=== PATIENT | female | born 1935 | race Caucasian/White ===

== ENCOUNTER 2017-09-06 08:00 | Outpatient (CLI) | payer MEDICARE, OTHER | END 2017-09-06 08:01 | disposition home or self-care (01) | LOC: SCSMAMMO 08:00 | PROVIDERS: ATTEND Family Medicine | DX: Z12.31 Encounter for screening mammogram for malignant neoplasm of breast (principal) | CPT/HCPCS: 77063 ==

== ENCOUNTER 2019-01-02 13:20 | Observation (INO) | payer MEDICARE, OTHER ==
[2019-01-02] MEDS ORDERED: Ondansetron PF 4 MG/2 ML Vial ONE (13:55)
[2019-01-02 14:00] LABS: #Basophils 0.1 thou/uL (0.0-0.2); #Eosinphils 0.1 thou/uL (0.0-0.7); #Lymphocytes 1.2 thou/uL (1.20-3.40); #Monocytes 0.6 thou/uL (0.11-0.59); #Neutrophils 3.6 thou/uL (1.40-6.50); %Basophils 1.4 % (0.0-1.0); %Eosinophils 2.6 % (0.0-10.0); %Lymphocytes 21.6 % (21.0-51.0); %Monocytes 11.3 % (0.0-10.0); %Neutrophils 63.2 % (42.0-75.0); Mean Corpuscular HGB CONC 32.5 g/dL (32.0-36.0); Mean Corpuscular Hemoglobin 29.5 pg (27.0-31.0); Mean Corpuscular Volume 90.8 fL (78.0-98.0); Mean Platelet Volume 7.6 fL (7.4-10.4); Platelet Count 352 thou/uL (130-400); RBC Distribution Width 11.9 % (11.5-14.5); Red Blood Cell (RBC) Count 4.39 mill/uL (4.20-5.40); White Blood Cell (WBC) Count 5.7 thou/uL (4.8-10.8)
[2019-01-02 14:23] LABS: ALT (SGPT) 11 U/L (8-55); AST (SGOT) 17 U/L (5-34); Albumin 3.7 g/dL (3.4-4.8); Alkaline Phosphatase 65 U/L (40-150); Anion Gap 10 mmol/L (10-20); BUN (Urea Nitrogen) 20 mg/dL (9.8-20.1); Bilirubin, Total 0.7 mg/dL (0.2-1.2); Calc. Creatinine Clearance 0 mL/min (70-130); Calcium 9.6 mg/dL (7.8-10.44); Carbon Dioxide 26 mmol/L (23-31); Chloride 99 mmol/L (98-107); Estimated GFR-MDRD 45; Globulin 3.1 g/dL (2.4-3.5); Glucose 95 mg/dL (83-110); Lipase 12 U/L (8-78); Potassium 4.3 mmol/L (3.5-5.1); Protein, Total 6.8 g/dL (6.0-8.3); Sodium 131 mmol/L (136-145)
[2019-01-02 15:06] LABS: Bilirubin Negative (Negative); Blood, Urine Negative (Negative); Clarity CLEAR (Clear); Glucose, Urine (Dipstick) Negative (Negative); Leukocyte Negative (Negative); Nitrite Negative (Negative); Protein, Urine (Dipstick) Negative (Neg-Trace); Specific Gravity, Urine 1.004 (1.002-1.036); Urobilinogen 0.2 mg/dL (0.2-1.0); pH, Urine 7.5 (5.0-9.0)
[2019-01-02] MEDS ORDERED: Aspirin Chewable 81 MG TAB ONE (17:40)
[2019-01-02] MEDS ORDERED: Mag-Al 1200 mg/1200 mg/30 ML UDCUP ONE (17:53)
[2019-01-02] MEDS ORDERED: Lidocaine Viscous Sol 2% 15 ml UD Cup ONE (17:53)
--- NOTE | 2019-01-02 18:38 | RAD ---
FEXAM: Portable chest PROVIDED CLINICAL HISTORY: Epigastric pain COMPARISON: 09/23/2018 FINDINGS: Cardiac and mediastinal silhouette is within normal limits. No focal consolidation, pleural fluid or pneumothorax evident. Vascular calcification involves the aortic arch. 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 IMPRESSION: No evidence for an acute cardiopulmonary process.
[2019-01-02 20:59] LABS: Troponin I 0.021 ng/mL (< 0.028)
[2019-01-02] MEDS ORDERED: Acetaminophen 325 MG TAB PO PRN (21:13)
[2019-01-02] MEDS ORDERED: Ondansetron ODT 4 MG TAB SL PRN (21:13)
[2019-01-02] MEDS ORDERED: Ondansetron PF 4 MG/2 ML Vial IVP PRN ×2 (21:13→22:21)
[2019-01-02] MEDS ORDERED: Ondansetron ODT 4 MG TAB PO PRN (22:21)
[2019-01-02] MEDS ORDERED: Acetaminophen 650 MG Suppository PR PRN (22:21)
[2019-01-02] MEDS ORDERED: Senokot S 8.6-50 MG TAB PO PRN (22:21)
--- NOTE | 2019-01-02 22:36 | RAD ---
FEXAM: KUB PROVIDED CLINICAL HISTORY: Abdominal pain COMPARISON: None FINDINGS: Visualized lung bases appear clear. Bowel gas pattern is nonspecific. No radiographically apparent ur inary tract calculi. IMPRESSION: Nonspecific bowel gas pattern.
[2019-01-02] MEDS ORDERED: PROVENTIL INHALER 6.7 G (200 INHALATIONS) INH PRN (23:22)
[2019-01-02] MEDS ORDERED: clonazePAM 0.5 MG TAB PO SCH (23:30)
[2019-01-02] MEDS ORDERED: traZODone HCl 50 MG TAB PO SCH (23:30)
[2019-01-02] MEDS: Polyethylene Glycol 3350 17 GM Packet PO SCH ×2 (23:36→23:59)
--- NOTE | 2019-01-03 01:37 | HP ---
CHIEF COMPLAINT: Epigastric pain. HISTORY OF PRESENT ILLNESS: Ms. Liu is an 83-year-old woman, who presents today complaining of epigastric pain and feeling generally unwell. She states she has history of celiac sprue disease as well as GERD and gastritis for which she follows with Dr. Jay, her GI specialist. She had an appointment today and was unable to make it due to issues with transportation. The patient accidentally presented to her appointment yesterday and was not seen; therefore, missed the appointment today, as she was unable to secure another ride. She currently lives in an independent living. The patient states her pain is chronic, but reports having increased abdominal bloating. She has been having issues with constipation that has been worse recently. She had a small hard bowel movement yesterday and did not note any bright red blood in her stools or melena. She states she passed a very small amount. Denies having any associated vomiting. Has been passing flatus. Denies any hematemesis. Overall, the patient states she feels generally unwell, complains of chronic chest tightness that is usually brought on with exertion. She is currently unhappy with her living situation and is very much seeking to be placed in assisted living. She is also concerned about her ability to mobilize as she did previously. In recent weeks, she has been more sedentary and only able to walk short distances with her walker. REVIEW OF SYSTEMS: The patient denies having any fevers, chills, or sweats. Denies having any chest pain or palpitations. She reports shortness of breath at baseline that has not changed. She does report occasional tightness in her chest with exertion and again, this is unchanged from baseline. Denies having any vomiting, but has been experiencing nausea. Reports abdominal discomfort primarily in the epigastric and right upper quadrant region. Feels her abdomen is more bloated as well. She does not report issues with constipation and last had a small hard bowel movement yesterday. Currently passing flatus. Tolerating oral intake. Denies any urinary symptoms such as dysuria, hematuria, urgency, or frequency. No headaches or dizziness. All other review of systems are negative. PAST MEDICAL HISTORY: 1. Celiac sprue disease. 2. COPD. 3. Hypertension. 4. Fibromyalgia. 5. Hyperlipidemia. 6. GERD. 7. Hiatal hernia. 8. CKD, stage 3. 9. Anxiety. 10. Depression. PAST SURGICAL HISTORY: 1. Cholecystectomy. 2. Right foot surgery. 3. surgery. 4. Appendectomy. 5. Tonsillectomy. SOCIAL HISTORY: Currently, the patient lives in [facility], which is an independent living. She denies any tobacco use, alcohol use, or illicit drug use. PHYSICAL EXAMINATION: GENERAL: The patient appears well developed, well nourished, is in no acute distress. VITAL SIGNS: Temperature 98.7, pulse 64, respirations 15, blood pressure 176/70, O2 saturation 94% on room air. HEENT: Normocephalic and atraumatic. Pupils are equal, round, and reactive to light. Sclerae are without icterus. Oropharynx is clear. NECK: Supple. No lymphadenopathy. LUNGS: Clear to auscultation bilaterally without any wheezes, rales, or rhonchi. CARDIAC: Regular rate and rhythm without audible murmurs, rubs, or gallops. ABDOMEN: Soft. Epigastric tenderness on palpation. No guarding or rigidity. Mild discomfort in the right upper quadrant as well. Bowel sounds are present. No renal angle tenderness. EXTREMITIES: No lower leg edema. NEUROLOGIC: Alert and oriented x3. SKIN: Without rash or jaundice. LABORATORY DATA: White blood count 5.7, hemoglobin 13, hematocrit 39, platelets 352. Sodium 131, potassium 4.3, chloride 99, carbon dioxide 26, anion gap 10, BUN 20, creatinine 1.15, GFR 45, glucose 75, calcium 9.6, bilirubin 0.7, AST 17, ALT 11, alkaline phosphatase 65. Troponin negative x3. Total protein 6.9, albumin 3.7, lipase 12. Urinalysis unremarkable. IMAGING DATA: Chest x-ray; no evidence for acute cardiopulmonary process. Vascular calcification involving the aortic arch. 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 IMPRESSION AND PLAN: Ms. Liu is an 83-year-old woman, who is being admitted for management of the following. 1. Chest pain. The patient was initially reported to have experienced chest pain today; therefore, was admitted for chest pain rule out. However, on assessment, the patient denies ever experiencing any chest pain and states her main complaint was epigastric discomfort, which is chronic again and slightly worse today. She has had serial troponins, which are negative. Chest x-ray unremarkable. Continues to be chest pain free. ECG done in the ER did not show any ST changes or T-wave abnormalities. It shows a normal sinus rhythm. 2. Upper abdominal pain. The patient reports having issues with reflux and esophagitis/gastritis. She follows with a Gastroenterology specialist for this and her celiac sprue. She was given a gastrointestinal cocktail in the ED and is currently feeling better. She is requesting to continue receiving Zofran for her nausea. 3. Constipation. The patient is without any clinical signs of obstruction. However, given tenderness and complaints of bloating, we will obtain abdominal x-ray to assess for fecal retention. We will give senna and MiraLAX to help with her stools. 4. Chronic kidney disease. Renal function actually improved from last visit in June 2018. We will continue to monitor. 5. Gastrointestinal prophylaxis. 6. Deep vein thrombosis prophylaxis. 7. Disposition. The patient concerned about being sent home to independent living. She feels she is not coping well on her own and wishes to be discharged to an assisted living. Her current medical power of patent attorney is her daughter, Lay Liu; however, it seems she has an estranged relationship with her. 8. Full code status. Surrogate decision maker is Lay Liu, her daughter. The patient's case to be discussed with Dr. Mooney for further recommendations. Job ID: [id number]
[2019-01-03 05:25] LABS: #Basophils 0.1 thou/uL (0.0-0.2); #Eosinphils 0.2 thou/uL (0.0-0.7); #Lymphocytes 1.8 thou/uL (1.20-3.40); #Monocytes 0.7 thou/uL (0.11-0.59); #Neutrophils 3.8 thou/uL (1.40-6.50); %Basophils 1.3 % (0.0-1.0); %Eosinophils 2.3 % (0.0-10.0); %Lymphocytes 27.5 % (21.0-51.0); %Monocytes 11.4 % (0.0-10.0); %Neutrophils 57.5 % (42.0-75.0); Hemoglobin 12.7 g/dL (12.0-16.0); Mean Corpuscular HGB CONC 33.4 g/dL (32.0-36.0); Mean Corpuscular Volume 92.9 fL (78.0-98.0); Mean Platelet Volume 7.6 fL (7.4-10.4); Platelet Count 312 thou/uL (130-400); White Blood Cell (WBC) Count 6.5 thou/uL (4.8-10.8)
[2019-01-03 05:46] LABS: Anion Gap 11 mmol/L (10-20); BUN (Urea Nitrogen) 15 mg/dL (9.8-20.1); Calc. Creatinine Clearance 68 mL/min (70-130); Calcium 9.2 mg/dL (7.8-10.44); Carbon Dioxide 25 mmol/L (23-31); Chloride 103 mmol/L (98-107); Estimated GFR-MDRD 55; Glucose 86 mg/dL (83-110); Potassium 4.2 mmol/L (3.5-5.1); Sodium 135 mmol/L (136-145)
[2019-01-03] MEDS: Levothyroxine Sodium 100 MCG TAB PO SCH (05:49)
[2019-01-03] MEDS: Bupropion 150 MG XL TAB PO SCH (07:47)
[2019-01-03] MEDS: CeleCOXIB 100 MG CAP PO SCH (07:47)
[2019-01-03] MEDS: Lisinopril 5 MG TAB PO SCH (07:48)
[2019-01-03] MEDS: Amlodipine 5 MG TAB PO SCH (07:48)
[2019-01-03] MEDS: Furosemide 40 MG TAB PO SCH (07:48)
[2019-01-03] MEDS: ALPRAZolam 1 MG TAB PO SCH ×2 (07:48→20:50)
[2019-01-03] MEDS: Polyethylene Glycol 3350 17 GM Packet PO SCH (07:49)
[2019-01-03] MEDS: Famotidine/PF 20 mg/2ml Vial SLOW IVP SCH (07:49)
--- NOTE | 2019-01-03 16:42 | PDOC.PN ---
- Subjective Encounter Start Date: 01/03/19 Encounter Start Time: 16:40 Patient reports abdominal pain improved with zofran and PPI. She denies chest pain. PT/OT working with patient today. She is requesting assisted living placement and is worried about falls. - Objective Resuscitation Status - Order Detail: 01/02/19 22:21 Resuscitation Status Routine Co-Sign Provider: Resuscitation Status: FULL: Full Resuscitation Discussed with: Patient Additional comments: Surrogate Decision Maker is her daughter Lay CALLES Reviewed: Yes Vital Signs & Weight: Vital Signs (12 hours) Temp Pulse Pulse Pulse Resp BP BP 01/03/19 16:04 97.5 F L 69 20 01/03/19 11:30 98.3 F 65 16 01/03/19 10:55 63 66 162/72 H 151/69 H 01/03/19 10:30 63 135/65 01/03/19 07:30 98.5 F 63 20 BP Pulse Ox 01/03/19 16:04 178/77 H 94 L 01/03/19 11:30 141/65 H 94 L 01/03/19 10:55 01/03/19 10:30 01/03/19 07:30 158/68 H 96 Weight Weight 213 lb 1.6 oz Result Diagrams: 01/03/19 05:12 01/03/19 05:12 Radiology Reviewed by me: Yes Phys Exam - Physical Examination Constitutional: NAD HEENT: moist MMs, oral pharynx no lesions Neck: no nodes, supple Respiratory: no wheezing, clear to auscultation bilateral Cardiovascular: RRR, no significant murmur Gastrointestinal: soft, positive bowel sounds Mild epigastric pain Musculoskeletal: pulses present Neurological: normal sensation, moves all 4 limbs Lymphatic: no nodes Psychiatric: normal affect, A&O x 3 Skin: no rash, cap refill <2 seconds Dx/Plan (1) GERD (gastroesophageal reflux disease) Code(s): K21.9 - GASTRO-ESOPHAGEAL REFLUX DISEASE WITHOUT ESOPHAGITIS Status: Acute (2) Epigastric pain Code(s): R10.13 - EPIGASTRIC PAIN Status: Acute (3) Nausea Code(s): R11.0 - NAUSEA Status: Acute (4) Constipation Code(s): K59.00 - CONSTIPATION, UNSPECIFIED Status: Acute (5) Chronic kidney disease Code(s): N18.9 - CHRONIC KIDNEY DISEASE, UNSPECIFIED Status: Acute - Plan cont current plan of care, PT/OT * Continue home medications * PT/OT * Case management consulted to assist with disposition * Patient seems to be tolerating PT/OT well, she may have to be discharged home and seek assisted living as outpatient * Continue zofran and PPI * Monitor H&H currently stable. * Likely discharged in the next 24 hours
[2019-01-03] MEDS ORDERED: clonazePAM 0.5 MG TAB PO SCH (21:00)
[2019-01-03] MEDS ORDERED: traZODone HCl 50 MG TAB PO SCH (21:00)
[2019-01-03] MEDS ORDERED: Acetaminophen 325 MG TAB PO PRN (21:02)
[2019-01-04] MEDS: Levothyroxine Sodium 100 MCG TAB PO SCH (02:55)
[2019-01-04] MEDS: Bupropion 150 MG XL TAB PO SCH (09:46)
[2019-01-04] MEDS: CeleCOXIB 100 MG CAP PO SCH (09:46)
[2019-01-04] MEDS: Amlodipine 5 MG TAB PO SCH (09:46)
[2019-01-04] MEDS: Polyethylene Glycol 3350 17 GM Packet PO SCH (09:47)
[2019-01-04] MEDS: ALPRAZolam 1 MG TAB PO SCH (09:47)
[2019-01-04] MEDS: Lisinopril 5 MG TAB PO SCH (09:47)
[2019-01-04] MEDS: Furosemide 40 MG TAB PO SCH (09:47)
[2019-01-04] MEDS: Famotidine/PF 20 mg/2ml Vial SLOW IVP SCH (09:50)
[2019-01-04 16:45] VITALS: BP 140/66; TEMP 98
== END 2019-01-04 17:15 | disposition home or self-care (01) ==
LOC: ERS 13:20 → 2SW 20:35
PROVIDERS: ADMIT Family Medicine; ATTEND Family Medicine
DX: G89.29 Other chronic pain (principal); R10.13 Epigastric pain; K90.0 Celiac disease; K21.9 Gastro-esophageal reflux disease without esophagitis; M79.7 Fibromyalgia; E78.5 Hyperlipidemia, unspecified; F41.9 Anxiety disorder, unspecified; F32.9 Major depressive disorder, single episode, unspecified; I12.9 Hypertensive chronic kidney disease with stage 1 through stage 4 chronic kidney disease, or unspecified chronic kidney disease; N18.3 Chronic kidney disease, stage 3 (moderate); Z88.0 Allergy status to penicillin; Z88.2 Allergy status to sulfonamides; Z88.8 Allergy status to other drugs, medicaments and biological substances; Z88.5 Allergy status to narcotic agent; Z91.011 Allergy to milk products; Z79.899 Other long term (current) drug therapy
CPT/HCPCS: 51701; 71045; 74018; 80048; 80053; 81003; 83690; 83880; 84484 ×2; 85025 ×2; 87086; 93005; 96374; 96375; 96376 ×2; 97116; 97139 ×2; 97535; 99285; G0378 ×2; 36415; 96361; A4353; J2405; S0028

== ENCOUNTER 2019-10-07 12:52 | Outpatient (CLI) | payer MEDICARE, MEDICAID ==
--- NOTE | 2019-10-07 15:41 | RAD ---
PA AND LATERAL CHEST: HISTORY: Dyspnea. COMPARISON: Exams from 01/22/2019 and 09/23/2018. FINDINGS: Heart size is within normal limits. There are atherosclerotic changes of the aorta. Chronic appearing lung changes are seen. There is some eventration to the left hemidiaphragm. IMPRESSION: Chronic lung change. POS: [facility]
== END 2019-10-07 12:53 | disposition home or self-care (01) ==
LOC: RAD 12:52
PROVIDERS: ATTEND Internal Medicine Pulmonary Disease
DX: R06.00 Dyspnea, unspecified (principal)
CPT/HCPCS: 71046